=== PATIENT | female | born 1975 | race Caucasian/White ===

== ENCOUNTER 2021-04-19 19:28 | Emergency (ER) | payer BC, SELFPAY ==
[2021-04-19 19:30] VITALS: BP 146/92; PULSE 96; RESP 19; TEMP 37; O2SAT 98; BMI 42.5
--- NOTE | 2021-04-19 19:45 | XR_ITS ---
PROCEDURE INFORMATION: Exam: XR Left Humerus Exam date and time: 04/19/2021 7:45 PM Age: 45 years old Clinical indication: Injury or trauma; Fall; Blunt trauma (contusions or hematomas); Arm, upper; Left; Injury date: 04/19/2021 TECHNIQUE: Imaging protocol: XR Left humerus. Views: 2 or more views. COMPARISON: CR XR SHOULDER LT MIN 2V 04/19/2021 7:40 PM FINDINGS: Bones/joints: Mildly comminuted fracture of the proximal left humerus at the head neck junction of extending transversely to involve the greater tuberosity where there appears to be heterogeneous geographic lucency of the marrow. No dislocation. Soft tissues: No radiopaque foreign body. IMPRESSION: Mildly comminuted fracture of the proximal left humerus at the head neck junction as described above. Cannot exclude pathologic fracture.
--- NOTE | 2021-04-19 19:45 | XR_ITS ---
PROCEDURE INFORMATION: Exam: XR Left Shoulder Exam date and time: 04/19/2021 7:45 PM Age: 45 years old Clinical indication: Injury or trauma; Fall; Blunt trauma (contusions or hematomas); Shoulder; Left; Injury date: 04/19/2021 TECHNIQUE: Imaging protocol: XR Left shoulder. Views: 2 or more views. COMPARISON: CR CXR2V XR chest 2V 05/20/2018 12:01 PM FINDINGS: Bones/joints: Mildly comminuted fracture of the proximal left humerus at the head neck junction of extending transversely to involve the greater tuberosity where there appears to be heterogeneous geographic lucency of the marrow. No dislocation. Soft tissues: No radiopaque foreign body. IMPRESSION: Mildly comminuted fracture of the proximal left humerus at the head neck junction as described above. Cannot exclude pathologic fracture.
--- NOTE | 2021-04-19 20:16 | HMH.EDUTC ---
[facility] [place] Disposition Clinical Impression: Fracture, humerus closed Qualifiers: Encounter type: initial encounter Humerus Location: proximal Fracture morphology: other fracture Fracture alignment: nondisplaced Laterality: left Qualified Code(s): S42.295A - Other nondisplaced fracture of upper end of left humerus, initial encounter for closed fracture Disposition: Home, Self-Care Condition on Discharge: Good Instructions: Humeral Shaft Fracture Additional Instructions: call ortho in am for appointment keep sling in place ice 20 mins remove and repeat every hour return if any issues Referrals: Batsheva Miller APRN [Primary Care Provider] - Cyril Nunn MD [Staff Physician] - Time of Disposition: 20:41 Medical Decision Making - Ministerio Inquiry Pt receiving controlled substance: No Vital Signs: 04/19/21 19:30 Temperature 98.6 F Temperature Source Oral Pulse Rate [Right Brachial] 96 H Respiratory Rate 19 Blood Pressure [Right Arm] 146/92 H Blood Pressure Mean [Right Arm] 110 Blood Pressure Source [Right Arm] Automatic Cuff Blood Pressure Position [Right Arm] Sitting 02 Sat by Pulse Oximetry 98 Oxygen Delivery Method Room Air [facility] [place] HPI - General Chief complaint: Urgent Treatment Center Stated complaint: [id number] fall left arm injury Time Seen by Provider: 04/19/21 20:16 Mode of Arrival: Ambulatory Source of Information: Patient Limitations: No Limitations Description of Symptoms (Recalled from Triage Doc. by RN): PATIENT C/O INJURY TO LEFT SHOULDER/UPPER ARM AFTER TRIPPING OVER HER FOOT AND FALLING IN HER BATHROOM THIS EVENING HEENT Symptoms (Recalled from RN notes): No Resp Symptoms (Recalled from RN notes): No Skin Symptoms (Recalled from RN notes): No MS Symptoms (Recalled from RN notes): Yes Functional Status (Recalled from RN notes): WNL - History of Present Illness Provider Complaint: 45 yr old female presents for left shoulder/arm pain. pt states she tripped in her bathroom on her shoe and fell into shower. pt states she caught herself with her arm as she was falling - Related Data Allergies Allergy/AdvReac Type Severity Reaction Status Date / Time cephalexin Allergy Intermediate I-HIVES Verified 05/20/18 11:39 hydrochlorothiazide Allergy Unknown DRY Verified 05/20/18 11:39 [HYDROCHLOROTHIAZIDE] THROAT, UNABLE TO URINATE Sulfa (Sulfonamide Allergy Unknown Verified 05/20/18 11:39 Antibiotics) acetaminophen [From Tylenol] Allergy Verified 05/20/18 11:39 - Worker's Comp Is this a Worker's Comp case?: No [facility] History - Hepatitis A Screen Drug use history?: No High risk sexual behaviors?: No History of sexually transmitted infection?: No Currently employed?: No Childcare worker?: No Do you have indoor plumbing?: Yes Do you have electricity?: Yes Attestation statement:: This patient has been screened for Hepatitis A risk factors. I have reviewed the patient's past medical history: Yes - Social History Smoking Status: Current every day smoker Tobacco Type: cigarettes Alcohol Intake: never Occupational Status: employed ROS Obtained: Yes Systems reviewed as appropriate & no additional complaints - Constitutional Constitutional: Reports system reviewed and no additional complaints, except as docu, Denies fever(s) - Eyes Eyes: Reports system reviewed and no additional complaints, except as docu, Denies blurry vision - ENT Ears, Nose, Mouth, and Throat: Reports system reviewed and no additional complaints, except as docu, Denies dry mouth - Cardiovascular Cardiovascular: Reports system reviewed and no additional complaints, except as docu, Denies chest pain - Respiratory Respiratory: Reports system reviewed and no additional complaints, except as docu, Denies cough - Gastrointestinal Gastrointestingal: Reports: system reviewed and no additional complaints, except as docu. Denies: abdominal pain - Musculoskeletal Musculoskeletal: Reports system rev
[2021-04-19 20:45] VITALS: BP 146/92; PULSE 96; RESP 19; TEMP 37; O2SAT 98
== END 2021-04-19 20:50 | disposition home or self-care (01) ==
PROVIDERS: Emergency Provider Nurse Practitioner Family; PCP Nurse Practitioner Family
DX: S42.295A Other nondisplaced fracture of upper end of left humerus, initial encounter for closed fracture (principal); W01.0XXA Fall on same level from slipping, tripping and stumbling without subsequent striking against object, initial encounter; Y92.012 Bathroom of single-family (private) house as the place of occurrence of the external cause; Z88.2 Allergy status to sulfonamides
CPT/HCPCS: 73030; 73060; 99202; G0463

== ENCOUNTER → 2021-05-08 08:25 | Outpatient (CLI) | payer BC, SELFPAY ==
--- NOTE | 2021-05-08 08:31 | XR_ITS ---
FINAL REPORT CLINICAL HISTORY: LT proximal humerus fx COMPARISON: April 19, 2021 FINDINGS: LEFT SHOULDER Two views demonstrate a comminuted fracture of the humeral neck and greater tuberosity. This is unchanged from the prior exam. There is no significant callus formation. The joint spaces appear normal. The visualized bony structures are well aligned. No soft tissue abnormality is seen. IMPRESSION: Humeral neck and greater tuberosity fracture with no significant callus formation. Reviewed, Interpreted and Dictated by Jamarcus Mae III, MD Transcribed by Seda Lopez Authenticated by Jamarcus Mae III, MD on 05/08/2021 09:28:[address] [facility]
== END ==
PROVIDERS: PCP Family Medicine; Visit Provider Orthopaedic Surgery
DX: S42.302A Unspecified fracture of shaft of humerus, left arm, initial encounter for closed fracture (principal)
CPT/HCPCS: 73030

== ENCOUNTER → 2021-05-22 10:24 | Outpatient (CLI) | payer BC, SELFPAY ==
--- NOTE | 2021-05-22 10:27 | XR_ITS ---
FINAL REPORT CLINICAL HISTORY: lt proximal humerus fracture COMPARISON: May 08, 2021 FINDINGS: LEFT SHOULDER 3 views of the left shoulder were obtained. There are fractures of the surgical and anatomic neck of the left humerus. There is progressive of healing of the fractures. The acromioclavicular and glenohumeral joints are intact. Soft tissues are unremarkable. IMPRESSION: Progressive healing of fractures of the surgical and anatomical neck of the left humerus. Reviewed, Interpreted and Dictated by Piotr Loo MD Transcribed by Seda Lopez Authenticated by Piotr Loo MD on 05/22/2021 11:14:10 AM [facility]
== END ==
PROVIDERS: PCP Family Medicine; Visit Provider Orthopaedic Surgery
DX: S42.302A Unspecified fracture of shaft of humerus, left arm, initial encounter for closed fracture (principal)
CPT/HCPCS: 73030

== ENCOUNTER → 2021-07-03 09:55 | Outpatient (CLI) | payer BC, SELFPAY ==
--- NOTE | 2021-07-03 09:59 | XR_ITS ---
FINAL REPORT CLINICAL HISTORY: internal, external, and Y views f/u fx COMPARISON: May 22, 2021 FINDINGS: LEFT SHOULDER: 3 views of the left shoulder were obtained. There is a comminuted fracture of the humeral head and surgical neck with evidence of interval healing and partial bony fusion. There is mild AC joint degenerative change. There is no soft tissue abnormality. IMPRESSION: Interval healing with partial bony fusion of a comminuted proximal humerus fracture. Reviewed, Interpreted and Dictated by Jamarcus Mae III, MD Transcribed by Parul Copeland Authenticated by Jamarcus Mae III, MD on 07/03/2021 12:29:[address] [facility]
== END ==
PROVIDERS: PCP Family Medicine; Visit Provider Orthopaedic Surgery
DX: S42.302A Unspecified fracture of shaft of humerus, left arm, initial encounter for closed fracture (principal)
CPT/HCPCS: 73030